=== PATIENT | female | born 1930 | race Caucasian/White ===

== ENCOUNTER 2019-05-19 10:31 | Emergency (ER) | payer MEDICARE, BC ==
[2019-05-19] MEDS ORDERED: Alteplase PER PHARMACY Stroke 1 EACH MISC MISCELLANE PRN ×2 (11:11→11:33)
[2019-05-19 11:12] LABS: Glucose,Whole Blood 97 mg/dL (75-99)
[2019-05-19 11:13] LABS: Basophils # (A) 0.1 k/uL (0-0.2); Basophils % (A) 1 %; Eosinophils # (A) 0.8 k/uL (0-0.7); Eosinophils % (A) 7 %; HCT 35.9 % (34.0-46.0); HGB 11.7 gm/dL (11.4-16.0); Lymphocytes # (A) 0.9 k/uL (1.0-4.8); Lymphocytes % (A) 8 %; MCH 30.6 pg (25.0-35.0); MCHC 32.7 g/dL (31.0-37.0); MCV 93.4 fL (80.0-100.0); Mean Platelet Volume 6.4; Monocytes # (A) 0.7 k/uL (0-1.0); Monocytes % (A) 6 %; Neutrophils # (A) 9.3 k/uL (1.3-7.7); Neutrophils % (A) 78 %; Platelet Count 331 k/uL (150-450); RBC 3.84 m/uL (3.80-5.40); RDW 13.5 % (11.5-15.5); WBC 11.9 k/uL (3.8-10.6)
[2019-05-19] MEDS ORDERED: ALTEPLASE 51 MG in EMPTY BAG 1 BAG IV STA (11:14)
[2019-05-19] MEDS ORDERED: ALTEPLASE BOLUS 6 MG in EMPTY SYRINGE 1 SYR IV STA (11:14)
[2019-05-19 11:18] LABS: Albumin 4.1 g/dL (3.5-5.0); Calcium 9.8 mg/dL (8.4-10.2); Total Bilirubin 0.9 mg/dL (0.2-1.3); Total Protein 7.5 g/dL (6.3-8.2)
--- NOTE | 2019-05-19 11:18 | CT ---
EXAMINATION TYPE: CT brain wo con for TPA DATE OF EXAM: 05/19/2019 HISTORY: Right sided weakness. Automated Exposure Control for Dose Reduction was Utilized. TECHNIQUE: CT scan of the head is performed without contrast. COMPARISON: None. FINDINGS: There is no acute intracranial hemorrhage or midline shift identified. There is diffuse v entricular and sulcal prominence consistent with diffuse age-related cerebral atrophy most prominent over the bilateral frontal lobes.. There is low-attenuation in the periventricular white matter cons istent with chronic small vessel ischemic change. The globes are intact and the visualized sinuses a re clear. IMPRESSION: No acute intracranial hemorrhage or midline shift. There is mild to moderate diffuse ce rebral atrophy most prominent over bilateral frontal lobes and chronic small vessel ischemic change n oted.
[2019-05-19 11:21] LABS: Partial Thromboplastin Time 23.9 sec (22.0-30.0); Prothrombin Time 10.5 sec (9.0-12.0)
[2019-05-19 11:22] LABS: Potassium 5.3 mmol/L (3.5-5.1)
[2019-05-19 11:28] LABS: Creatine Kinase <20 U/L (30-135)
[2019-05-19 11:41] LABS: Creatine Kinase MB 1.2 ng/mL (0.0-2.4); Troponin I <0.012 ng/mL (0.000-0.034)
--- NOTE | 2019-05-19 11:54 | CT ---
EXAMINATION TYPE: CT angio head neck DATE OF EXAM: 05/19/2019 COMPARISON: CT same day HISTORY: 88-year-old female neurologic deficits, acute Right sided weakness. TECHNIQUE: Contiguous axial scanning of the head and neck performed with IV Contrast, patient injecte d with 65 mL of Isovue 370. Coronal/sagittal MIP reconstructions performed. 3-D reconstructions gener ated on a dedicated independent workstation. CT DLP: 1489.1 mGycm Automated exposure control for dose reduction was used. FINDINGS: Neck: Incidental 5.2 x 4.8 cm superior segment right lower lobe mass. There may be minimal extension across the major fissure. Right hilar lymph node up to 2.3 cm, subcarinal lymph node at 1.5 cm, and right p aratracheal lymph nodes measuring up to 2.4 cm. Background of emphysema moderate to severe. Ascending aorta ectatic at 3.5 cm. Mild atherosclerotic arch calcifications with conventional arch ve ssel branching anatomy. Tortuous proximal right common carotid artery. Both right common and internal carotid arteries are pa tent. Mild atherosclerotic narrowing at the origin of the left common carotid artery. Severe atheroscleroti c calcification at the left carotid bulb with left ICA occlusion. The left bifurcation is located 1.5 cm below the angle of the mandible. The vertebral arteries are codominant and patent throughout their course. Head: Mild atherosclerotic calcifications proximal V4 segment bilateral vertebral arteries. No significant stenosis of the vertebral basilar arteries. Nonopacification of the left internal carotid artery. Moderate atherosclerotic narrowing within the r ight carotid siphon. There is reconstitution of the left-sided MCA and BUNNY branches probably from retrograde flow from a p atent anterior communicating artery. No aneurysmal changes seen. IMPRESSION: NECK: 1. INCIDENTAL 5.2 CM SUPERIOR SEGMENT RIGHT LOWER LOBE MASS WITH METASTATIC RIGHT HILAR AND MEDIASTIN AL LYMPHADENOPATHY MEASURING UP TO 2.4 CM. APPROPRIATE WORKUP AND MANAGEMENT RECOMMENDED. 2. SEVERE ATHEROSCLEROTIC CALCIFICATION LEFT CAROTID BULB WITH PROXIMAL LEFT ICA OCCLUSION. HEAD: 1. NO FLOW IN THE INTRACRANIAL LEFT ICA. RECONSTITUTION OF FLOW OF THE LEFT-SIDED BUNNY AND MCA BRANCHE S PROBABLY FROM RETROGRADE FLOW THROUGH A PATENT ANTERIOR COMMUNICATING ARTERY. 2. MODERATE ATHEROSCLEROTIC NARROWING WITHIN THE RIGHT CAROTID SIPHON.
[2019-05-19 12:37] VITALS: RESP 18
--- NOTE | 2019-05-19 13:21 | XR ---
EXAMINATION TYPE: XR chest 1V portable DATE OF EXAM: 05/19/2019 COMPARISON: NONE HISTORY: Right arm weakness TECHNIQUE: Single frontal view of the chest is obtained. FINDINGS: There is a large right hilar soft tissue prominence could represent mass or adenopathy. La rge hiatal hernia seen. Heart is enlarged and there is diffuse osteopenia and atherosclerotic change aorta. No pneumothorax or overt failure. No focal pneumonia. IMPRESSION: 1. Right hilar soft tissue prominence may represent a mass or adenopathy. Consider CT of the chest. 2. Large hiatal hernia. 3. Cardiomegaly
--- NOTE | 2019-05-19 13:56 | ED ---
Neuro HPI - General Chief Complaint: Neuro Symptoms/Deficit Stated Complaint: rt arm weakness Time Seen by Provider: 05/19/19 10:46 Source: patient, RN notes reviewed Mode of arrival: wheelchair Limitations: no limitations - History of Present Illness Is the patient presenting with stroke symptoms?: Yes Initial Comments: This is a 88-year-old female presents to the onset around 9:00 this morning of right-sided facial droop as well as right upper lower extremity weakness. She has had history of TIAs in past. She denies any pain no fall no trauma fevers chills nausea vomiting sweats he had apparently related data yesterday. - Related Data Home Medications: Home Medications Medication Instructions Recorded Confirmed Aspirin [Children's Aspirin] 81 mg PO DAILY 05/19/19 05/19/19 Atenolol [Tenormin] 50 mg PO DAILY 05/19/19 05/19/19 Benazepril/Hydrochlorothiazide 1 tab PO DAILY 05/19/19 05/19/19 [Benazepril-Hctz 10-12.5 mg Tab] Calcium Citrate/Vitamin D3 1 tab PO DAILY 05/19/19 05/19/19 [Calcium Cit 315-Vit D3 250mg Tab] Clopidogrel [Plavix] 75 mg PO DAILY 05/19/19 05/19/19 Diazepam [Valium] 5 mg PO DAILY PRN 05/19/19 05/19/19 Ferrous Sulfate 220 mg PO DAILY 05/19/19 05/19/19 [place]-3 Acid Ethyl Esters [Lovaza] 1 gm PO DAILY 05/19/19 05/19/19 Pravastatin Sodium [Pravachol] 40 mg PO DAILY 05/19/19 05/19/19 Allergies/Adverse Reactions: Allergies Allergy/AdvReac Type Severity Reaction Status Date / Time Iodinated Contrast Media Allergy Unknown Verified 05/19/19 11:01 Tetanus Vaccines and Toxoid Allergy Unknown Verified 05/19/19 10:53 Review of Systems ROS Statement: Those systems with pertinent positive or pertinent negative responses have been documented in the HPI. ROS Other: All systems not noted in ROS Statement are negative. General Exam - General Exam Comments Initial Comments: Is a well-developed asthenic appearing female who is awake alert oriented 3 he does demonstrate facial asymmetry in the right Limitations: no limitations General appearance: alert, anxious Head exam: Present: atraumatic, normocephalic, normal inspection Eye exam: Present: normal appearance, PERRL, EOMI. Absent: scleral icterus, conjunctival injection, periorbital swelling ENT exam: Present: mucous membranes moist, other (Flattening other right nasolabial fold with some facial asymmetry compared to the left) Neck exam: Present: normal inspection, full ROM, other (No stridor JVD or bruits). Absent: tenderness, meningismus, lymphadenopathy Respiratory exam: Present: normal lung sounds bilaterally. Absent: respiratory distress, wheezes, rales, rhonchi, stridor Cardiovascular Exam: Present: tachycardia, irregular rhythm, normal heart sounds. Absent: systolic murmur, diastolic murmur, rubs, gallop, clicks GI/Abdominal exam: Present: soft, normal bowel sounds. Absent: distended, tenderness, guarding, rebound, rigid Extremities exam: Present: normal inspection, normal capillary refill. Absent: full ROM, tenderness, pedal edema, joint swelling, calf tenderness Back exam: Present: normal inspection Neurological exam: Present: alert, oriented X3, motor sensory deficit. Absent: CN II-XII intact Psychiatric exam: Present: normal affect, normal mood Skin exam: Present: warm, dry, intact, normal color. Absent: rash Stroke MDM - Lab Data Result diagrams: 05/19/19 10:54 05/19/19 10:54 Lab Results 05/19/19 05/19/19 05/19/19 Range/Units 10:52 10:54 10:54 WBC 11.9 H (3.8-10.6) k/uL RBC 3.84 (3.80-5.40) m/uL Hgb 11.7 (11.4-16.0) gm/dL Hct 35.9 (34.0-46.0) % MCV 93.4 (80.0-100.0) fL MCH 30.6 (25.0-35.0) pg MCHC 32.7 (31.0-37.0) g/dL RDW 13.5 (11.5-15.5) % Plt Count 331 (150-450) k/uL Neutrophils % 78 % Lymphocytes % 8 % Monocytes % 6 % Eosinophils % 7 % Basophils % 1 % Neutrophils # 9.3 H (1.3-7.7) k/uL Lymphocytes # 0.9 L (1.0-4.8) k/uL Monocytes # 0.7 (0-1.0) k/uL Eosinophils # 0.8 H (0-0.7) k/uL Basophils # 0.1 (0-0.2) k/uL PT (9.0-12.0) sec INR (<1.2) APTT (22.0-30.0) sec Sodium 142 (137-145) mmol/L Potassium 5.3 H (3.5-5.1) mmol/L Chloride 111 H (98-107) mmol/L Carbon Dioxide 20 L (22-30) mmol/L Anion Gap 11 mmol/L BUN 51 H (7-17) mg/dL Creatinine 2.27 H (0.52-1.04) mg/dL Est GFR (CKD-EPI)AfAm 22 (>60 ml/min/1.73 sqM) Est GFR (CKD-EPI)NonAf 19 (>60 ml/min/1.73 sqM) Glucose 95 (74-99) mg/dL POC Glucose (mg/dL) 97 (75-99) mg/dL POC Glu Broom Handle Dipper ID Enrique Mathur Calcium 9.8 (8.4-10.2) mg/dL Total Bilirubin 0.9 (0.2-1.3) mg/dL AST 21 (14-36) U/L ALT 10 (9-52) U/L Alkaline Phosphatase 64 (38-126) U/L Total Creatine Kinase (30-135) U/L CK-MB (CK-2) (0.0-2.4) ng/mL CK-MB (CK-2) Rel Index Troponin I (0.000-0.034) ng/mL Total Protein 7.5 (6.3-8.2) g/dL Albumin 4.1 (3.5-5.0) g/dL 05/19/19 05/19/19 Range/Units 10:54 10:54 WBC (3.8-10.6) k/uL RBC (3.80-5.40) m/uL Hgb (11.4-16.0) gm/dL Hct (34.0-46.0) % MCV (80.0-100.0) fL MCH (25.0-35.0) pg MCHC (31.0-37.0) g/dL RDW (11.5-15.5) % Plt Count (150-450) k/uL Neutrophils % % Lymphocytes % % Monocytes % % Eosinophils % % Basophils % % Neutrophils # (1.3-7.7) k/uL Lymphocytes # (1.0-4.8) k/uL Monocytes # (0-1.0) k/uL Eosinophils # (0-0.7) k/uL Basophils # (0-0.2) k/uL PT 10.5 (9.0-12.0) sec INR 1.0 (<1.2) APTT 23.9 (22.0-30.0) sec Sodium (137-145) mmol/L Potassium (3.5-5.1) mmol/L Chloride (98-107) mmol/L Carbon Dioxide (22-30) mmol/L Anion Gap mmol/L BUN (7-17) mg/dL Creatinine (0.52-1.04) mg/dL Est GFR (CKD-EPI)AfAm (>60 ml/min/1.73 sqM) Est GFR (CKD-EPI)NonAf (>60 ml/min/1.73 sqM) Glucose (74-99) mg/dL POC Glucose (mg/dL) (75-99) mg/dL POC Glu Broom Handle Dipper ID Calcium (8.4-10.2) mg/dL Total Bilirubin (0.2-1.3) mg/dL AST (14-36) U/L ALT (9-52) U/L Alkaline Phosphatase (38-126) U/L Total Creatine Kinase <20 L (30-135) U/L CK-MB (CK-2) 1.2 (0.0-2.4) ng/mL CK-MB (CK-2) Rel Index Troponin I <0.012 (0.000-0.034) ng/mL Total Protein (6.3-8.2) g/dL Albumin (3.5-5.0) g/dL - NIH Stroke Scale 1a. Level of Consciousness: (0) alert 1b. LOC Questions: (0) answers correctly 1c. LOC Commands: (0) performs tasks correctly 2. Best Gaze: (1) partial gaze palsy 3. Visual: (0) no visual loss 4. Facial Palsy: (1) minor paralysis 5a. Motor Arm Left: (0) no drift 5b. Motor Arm Right: (4) no movement 6a. Motor Leg Left: (0) no drift 6b. Motor Leg Right: (2) some gravity effort 7. Limb Ataxia: (1) present 1 limb 8. Sensory: (0) normal 9. Best Language: (0) no aphasia 10. Dysarthria: (0) normal 11. Extinction/Inattention: (0) no abnormality - Thrombolytic Inclusion/Exclusion Thrombolytic Inclusion Criteria: Symptom Onset < 4.5 h - Medical Decision Making Reevaluation patient reveals improvement in her symptoms. They're almost totally resolved. The copy coordinator did contact the neurology patient will be admitted with evaluation here. Past Medical History Past Medical History: CVA/TIA History of Any Multi-Drug Resistant Organisms: None Reported Past Surgical History: No Surgical Hx Reported Past Psychological History: No Psychological Hx Reported Smoking Status: Never smoker Past Alcohol Use History: None Reported Past Drug Use History: None Reported Course Vital Signs 05/19/19 05/19/19 05/19/19 10:32 11:35 11:50 Temperature 98.1 F 97.4 F L 97.6 F Pulse Rate 99 103 H 112 H Respiratory 18 18 18 Rate Blood Pressure 109/73 120/76 107/76 O2 Sat by Pulse 98 100 100 Oximetry 05/19/19 05/19/19 05/19/19 12:05 12:20 12:35 Temperature 97.0 F L 97.6 F 97.4 F L Pulse Rate 97 102 H 112 H Respiratory 20 20 18 Rate Blood Pressure 117/72 115/70 118/84 O2 Sat by Pulse 100 100 100 Oximetry 05/19/19 05/19/19 05/19/19 12:50 13:05 13:20 Temperature 98.0 F Pulse Rate 105 H 109 H 98 Respiratory 18 18 18 Rate Blood Pressure 121/78 110/72 118/69 O2 Sat by Pulse 100 100 95 Oximetry - Reevaluation(s) Reevaluation #1: 05/19/19 13:49 The code stroke was called. Dr. Valenzuela did respond did evaluate the CAT scans as well as the patient. Plain brain CT was negative for acute findings the CT angios did show evidence of some some nonacute occlusion. Patient was not a candidate for intervention with TPA candidate. Reevaluation #2: 05/19/19 13:50 Reevaluation for TPA revealed almost total resolution of the symptoms. Critical Care Time Critical Care Time: Yes Critical Care Time: 40 minutes of critical care time which includes initial presentation with history physical labs x-rays multiple reevaluation the patient responsive therapy discuss with the patient family and multiple occasions discuss with the interventional neurologist discussed with the admitting physician on Dr. Arteaga's service admission orders neck mentation the above Disposition Clinical Impression: Cerebrovascular accident (CVA) Disposition: ADMITTED IP TO THIS HOSP Condition: Fair Referrals: Gelacio Deluca MD [Primary Care Provider] - 1-2 days
[2019-05-19] MEDS ORDERED: NALOXONE 0.4 MG/ML 1 ML VIAL IV PRN (13:58)
[2019-05-19] MEDS ORDERED: ACETAMINOPHEN TAB 325 MG TAB PO PRN (13:58)
[2019-05-19] MEDS ORDERED: DIAZEPAM 5 MG TAB PO PRN (14:00)
[2019-05-19] MEDS ORDERED: SODIUM CHLORIDE 0.9% 1,000 ML IV SCH (14:00)
--- NOTE | 2019-05-19 14:02 | ED ---
Medical Decision Making - Lab Data Result diagrams: 05/19/19 10:54 05/19/19 10:54 Lab Results 05/19/19 05/19/19 05/19/19 Range/Units 10:52 10:54 10:54 WBC 11.9 H (3.8-10.6) k/uL RBC 3.84 (3.80-5.40) m/uL Hgb 11.7 (11.4-16.0) gm/dL Hct 35.9 (34.0-46.0) % MCV 93.4 (80.0-100.0) fL MCH 30.6 (25.0-35.0) pg MCHC 32.7 (31.0-37.0) g/dL RDW 13.5 (11.5-15.5) % Plt Count 331 (150-450) k/uL Neutrophils % 78 % Lymphocytes % 8 % Monocytes % 6 % Eosinophils % 7 % Basophils % 1 % Neutrophils # 9.3 H (1.3-7.7) k/uL Lymphocytes # 0.9 L (1.0-4.8) k/uL Monocytes # 0.7 (0-1.0) k/uL Eosinophils # 0.8 H (0-0.7) k/uL Basophils # 0.1 (0-0.2) k/uL PT (9.0-12.0) sec INR (<1.2) APTT (22.0-30.0) sec Sodium 142 (137-145) mmol/L Potassium 5.3 H (3.5-5.1) mmol/L Chloride 111 H (98-107) mmol/L Carbon Dioxide 20 L (22-30) mmol/L Anion Gap 11 mmol/L BUN 51 H (7-17) mg/dL Creatinine 2.27 H (0.52-1.04) mg/dL Est GFR (CKD-EPI)AfAm 22 (>60 ml/min/1.73 sqM) Est GFR (CKD-EPI)NonAf 19 (>60 ml/min/1.73 sqM) Glucose 95 (74-99) mg/dL POC Glucose (mg/dL) 97 (75-99) mg/dL POC Glu Economic Developer ID Enrique Mathur Calcium 9.8 (8.4-10.2) mg/dL Total Bilirubin 0.9 (0.2-1.3) mg/dL AST 21 (14-36) U/L ALT 10 (9-52) U/L Alkaline Phosphatase 64 (38-126) U/L Total Creatine Kinase (30-135) U/L CK-MB (CK-2) (0.0-2.4) ng/mL CK-MB (CK-2) Rel Index Troponin I (0.000-0.034) ng/mL Total Protein 7.5 (6.3-8.2) g/dL Albumin 4.1 (3.5-5.0) g/dL 05/19/19 05/19/19 Range/Units 10:54 10:54 WBC (3.8-10.6) k/uL RBC (3.80-5.40) m/uL Hgb (11.4-16.0) gm/dL Hct (34.0-46.0) % MCV (80.0-100.0) fL MCH (25.0-35.0) pg MCHC (31.0-37.0) g/dL RDW (11.5-15.5) % Plt Count (150-450) k/uL Neutrophils % % Lymphocytes % % Monocytes % % Eosinophils % % Basophils % % Neutrophils # (1.3-7.7) k/uL Lymphocytes # (1.0-4.8) k/uL Monocytes # (0-1.0) k/uL Eosinophils # (0-0.7) k/uL Basophils # (0-0.2) k/uL PT 10.5 (9.0-12.0) sec INR 1.0 (<1.2) APTT 23.9 (22.0-30.0) sec Sodium (137-145) mmol/L Potassium (3.5-5.1) mmol/L Chloride (98-107) mmol/L Carbon Dioxide (22-30) mmol/L Anion Gap mmol/L BUN (7-17) mg/dL Creatinine (0.52-1.04) mg/dL Est GFR (CKD-EPI)AfAm (>60 ml/min/1.73 sqM) Est GFR (CKD-EPI)NonAf (>60 ml/min/1.73 sqM) Glucose (74-99) mg/dL POC Glucose (mg/dL) (75-99) mg/dL POC Glu Economic Developer ID Calcium (8.4-10.2) mg/dL Total Bilirubin (0.2-1.3) mg/dL AST (14-36) U/L ALT (9-52) U/L Alkaline Phosphatase (38-126) U/L Total Creatine Kinase <20 L (30-135) U/L CK-MB (CK-2) 1.2 (0.0-2.4) ng/mL CK-MB (CK-2) Rel Index Troponin I <0.012 (0.000-0.034) ng/mL Total Protein (6.3-8.2) g/dL Albumin (3.5-5.0) g/dL - EKG Data -: EKG Interpreted by Me (Atrial flutter rate was 111 QRS 70 QT since QTC 288/391 abnormal QRS-T angl) Disposition Clinical Impression: Cerebrovascular accident (CVA), Atrial flutter Disposition: ADMITTED IP TO THIS HOSP Condition: Fair Referrals: Gelacio Deluca MD [Primary Care Provider] - 1-2 days
--- NOTE | 2019-05-19 15:32 | ED ---
Medical Decision Making - Medical Decision Making The case was discussed with Dr. Salguero as well as with Dr. Infante. No neurological covering after today. Due to the TPA being given and the lung mass and other potential problems a higher level of care was deemed to be necessary. Patient will be transferred to [facility] in [place] Dr. Agosto. Patient will be transferred by EMS. I did discuss this with patient and with family members. - Lab Data Result diagrams: 05/19/19 10:54 05/19/19 10:54 Lab Results 05/19/19 05/19/19 05/19/19 Range/Units 10:52 10:54 10:54 WBC 11.9 H (3.8-10.6) k/uL RBC 3.84 (3.80-5.40) m/uL Hgb 11.7 (11.4-16.0) gm/dL Hct 35.9 (34.0-46.0) % MCV 93.4 (80.0-100.0) fL MCH 30.6 (25.0-35.0) pg MCHC 32.7 (31.0-37.0) g/dL RDW 13.5 (11.5-15.5) % Plt Count 331 (150-450) k/uL Neutrophils % 78 % Lymphocytes % 8 % Monocytes % 6 % Eosinophils % 7 % Basophils % 1 % Neutrophils # 9.3 H (1.3-7.7) k/uL Lymphocytes # 0.9 L (1.0-4.8) k/uL Monocytes # 0.7 (0-1.0) k/uL Eosinophils # 0.8 H (0-0.7) k/uL Basophils # 0.1 (0-0.2) k/uL PT (9.0-12.0) sec INR (<1.2) APTT (22.0-30.0) sec Sodium 142 (137-145) mmol/L Potassium 5.3 H (3.5-5.1) mmol/L Chloride 111 H (98-107) mmol/L Carbon Dioxide 20 L (22-30) mmol/L Anion Gap 11 mmol/L BUN 51 H (7-17) mg/dL Creatinine 2.27 H (0.52-1.04) mg/dL Est GFR (CKD-EPI)AfAm 22 (>60 ml/min/1.73 sqM) Est GFR (CKD-EPI)NonAf 19 (>60 ml/min/1.73 sqM) Glucose 95 (74-99) mg/dL POC Glucose (mg/dL) 97 (75-99) mg/dL POC Glu Fashion Photographer ID Enrique Mathur Calcium 9.8 (8.4-10.2) mg/dL Total Bilirubin 0.9 (0.2-1.3) mg/dL AST 21 (14-36) U/L ALT 10 (9-52) U/L Alkaline Phosphatase 64 (38-126) U/L Total Creatine Kinase (30-135) U/L CK-MB (CK-2) (0.0-2.4) ng/mL CK-MB (CK-2) Rel Index Troponin I (0.000-0.034) ng/mL Total Protein 7.5 (6.3-8.2) g/dL Albumin 4.1 (3.5-5.0) g/dL 05/19/19 05/19/19 Range/Units 10:54 10:54 WBC (3.8-10.6) k/uL RBC (3.80-5.40) m/uL Hgb (11.4-16.0) gm/dL Hct (34.0-46.0) % MCV (80.0-100.0) fL MCH (25.0-35.0) pg MCHC (31.0-37.0) g/dL RDW (11.5-15.5) % Plt Count (150-450) k/uL Neutrophils % % Lymphocytes % % Monocytes % % Eosinophils % % Basophils % % Neutrophils # (1.3-7.7) k/uL Lymphocytes # (1.0-4.8) k/uL Monocytes # (0-1.0) k/uL Eosinophils # (0-0.7) k/uL Basophils # (0-0.2) k/uL PT 10.5 (9.0-12.0) sec INR 1.0 (<1.2) APTT 23.9 (22.0-30.0) sec Sodium (137-145) mmol/L Potassium (3.5-5.1) mmol/L Chloride (98-107) mmol/L Carbon Dioxide (22-30) mmol/L Anion Gap mmol/L BUN (7-17) mg/dL Creatinine (0.52-1.04) mg/dL Est GFR (CKD-EPI)AfAm (>60 ml/min/1.73 sqM) Est GFR (CKD-EPI)NonAf (>60 ml/min/1.73 sqM) Glucose (74-99) mg/dL POC Glucose (mg/dL) (75-99) mg/dL POC Glu Fashion Photographer ID Calcium (8.4-10.2) mg/dL Total Bilirubin (0.2-1.3) mg/dL AST (14-36) U/L ALT (9-52) U/L Alkaline Phosphatase (38-126) U/L Total Creatine Kinase <20 L (30-135) U/L CK-MB (CK-2) 1.2 (0.0-2.4) ng/mL CK-MB (CK-2) Rel Index Troponin I <0.012 (0.000-0.034) ng/mL Total Protein (6.3-8.2) g/dL Albumin (3.5-5.0) g/dL Disposition Clinical Impression: Cerebrovascular accident (CVA), Atrial flutter Disposition: OTHER INSTITUTION NOT DEFINED Condition: Fair Referrals: Gelacio Deluca MD [Primary Care Provider] - 1-2 days - Out of Hospital Transfer - Req. Specs Out of Hospital Transfer - Requested Specifics: Other Emergency Center
[2019-05-19 16:27] VITALS: BP 121/71; PULSE 98; TEMP 98.3
--- NOTE | 2019-05-19 18:14 | P.CNNES ---
History of Present Illness Consult date: 05/19/19 Reason for Consult: Concern for stroke Chief complaint: Right-sided facial droop and right upper extremity weakness History of Present Illness: HISTORY OF PRESENT ILLNESS: Thank you for allowing me to evaluate Mss. Clarita Thomas. Ms. Thomas is an 88-year-old woman with past medical history of TIA (slurred speech), right ICA occlusion, hypertension, arthritis, presented with acute onset right upper extremity weakness along with some speech difficulty since this morning. Patient was brought in by her daughter who she lives with. Patient was noted to have some right facial droop as well by her daughter, and it isn't possible. Patient's initial NIH stroke scale score was 7. Patient was deemed a candidate for TPA but not for a thrombectomy. Patient received TPA, after which patient's NIH stroke scale score came down to a 1. Initially, patient was not able to move her right upper extremity at all or answer some questions, but patient is now able to move her right upper extremity against gravity although still weak, and she no longer has any speech difficulty. Patient denies any headache, nausea, vomiting, dizziness, vertigo, numbness or tingling. Denies any double or blurry vision. Denies any recent sickness, coughing, sneezing, abdominal pain, diarrhea, constipation, pain with urination, increased frequency. Daughter states that about a week ago, patient was told that she had atrial fibrillation. Patient had been on aspirin and Plavix due to her right ICA occlusion and some stenosis in her left ICA. However, patient was recently told that any both was too much, so she's been taking Plavix every day and aspirin once a week. PAST MEDICAL HISTORY: TIA (slurred speech), right ICA occlusion, hypertension, arthritis PAST SURGICAL HISTORY: none reported HOME MEDICATIONS: Pravastatin, omega-3, ferrous sulfate, Plavix, calcium, benazepril-HCTZ, atenolol, aspirin ALLERGIES: Contrast, tetanus vaccines SOCIAL HISTORY: Patient smoked from age 19 until 48. Smoked about 1 pack per day. denies any alcohol abuse or drug abuse history. REVIEW OF SYSTEMS: The 14 systems are reviewed and no additional points are identified compared to the review of systems documented history and physical PHYSICAL EXAMINATION: VITAL SIGNS: T 98.0 HR 103 RR 18 BP 123/81 O2 sat 100% on RA GEN.: NAD, pleasant and cooperative HEENT: NCAT, sclera without icterus NECK: Supple SKIN AND EXTREMITIES: Warm to touch, no edema NEURO: MENTAL STATUS: Patient alert and oriented to self, place, time. Able to name the current president. Speech fluent, able to name and repeat, following all commands readily. No right and left disorientation, extinction to double simultaneous stimulation, finger agnosia, neglect. CRANIAL NERVES II THROUGH XII: II: Pupils are equal and reactive to light symmetrically. No afferent pupillary defect. Visual dunn are intact. III, IV, : No ptosis. Extraocular movements full. No nystagmus. V: Facial sensation intact from V1-3. VII. No clear facial asymmetry. VIII: Hearing intact to finger rub bilaterally. IX, X: Symmetric palate elevation. XI: Shoulder shrug intact. XII: Tongue midline without fasciculation or atrophy. MOTOR: Normal bulk/tone. Right upper extremity pronator drift. No tremor. Strength is 5/5 in left upper extremity and bilateral nausea and malaise. Patient is able to move her right upper extremity against gravity. Her proximal right upper extremity weakness is greater than distal right upper extremity weakness. 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 REFLEXES: 2+ throughout. Toes are downgoing. COORDINATION: Finger to nose intact. No dysmetria. GAIT: Deferred DIAGNOSTIC TESTING: LABORATORY: WBC 11.9 hemoglobin 11.7 platelet 331 PT 10.5 INR 1.0 sodium 142 potassium 5.3 chloride 111 bicarb 20 BUN 51 creatinine 2.27 glucose 95 AST 21 ALT 10 alk phos 64 troponin <0.012 IMAGING: CT head without contrast 05/19/2019: No acute intracranial hemorrhage or midline shift. There is mild to moderate diffuse cerebral atrophy most prominent over bilateral frontal lobes and chronic small vessel ischemic changes noted. CT head and neck with and without contrast 05/19/2019: Severe atherosclerotic calcification left carotid bulb with proximal left ICA occlusion. 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 No flow in the intracranial left ICA. Reconstitution of flow of the left-sided BUNNY and MCA branches probably from a separate flow through a patent anterior c ommunicating artery. Moderate atherosclerotic narrowing within the right carotid siphon. ASSESSMENT: Ms. Frabotta is an 88-year-old woman with past medical history of TIA (slurred speech), right ICA occlusion, hypertension, arthritis, presented with acute onset right upper extremity weakness along with some speech difficulty since this morning. Patient was recently diagnosed with atrial fibrillation. Patient emergency room also showing atrial fibrillation. CT date of the head and neck also showed some parts of the lungs, which showed possible malignancy. Patient with multiple risk factors for stroke, such as hypertension, atherosclerosis, atrial fibrillation, and possible cancer at this time. Patient is post-TPA, and she will need TPA care in the ICU for the next 24 hours. RECOMMENDATIONS: 1. MRI brain without contrast at 24 hour sandeep after TPA administration 2. Transthoracic echocardiogram 3. Maintain SBP <185 DBP <120; labetalol 10mg IV PRN for SBP >185 DBP >120 4. Atorvastatin 80mg qhs; no antiplatelet or anticoagulation at this time 5. Labs: A1C, TSH, FLP 6. PT/OT/ST per protocol 7. Discussed with patient about stroke prevention guidelines. Medication compliance, hypertension/diabetes control, lifestyle changes including no smoking, drinking in moderation, losing weight, exercising, eating healthier and medication compliance 8. Neurology will continue to follow 9. Patient needs to follow up with neurologist as outpatient with her 1-2 weeks of discharge Past Medical History Past Medical History: CVA/TIA History of Any Multi-Drug Resistant Organisms: None Reported Past Surgical History: No Surgical Hx Reported Past Psychological History: No Psychological Hx Reported Smoking Status: Never smoker Past Alcohol Use History: None Reported Past Drug Use History: None Reported Medications and Allergies Home Medications Medication Instructions Recorded Confirmed Type Aspirin [Children's Aspirin] 81 mg PO DAILY 05/19/19 05/19/19 History Atenolol [Tenormin] 50 mg PO DAILY 05/19/19 05/19/19 History Benazepril/Hydrochlorothiazide 1 tab PO DAILY 05/19/19 05/19/19 History [Benazepril-Hctz 10-12.5 mg Tab] Calcium Citrate/Vitamin D3 1 tab PO DAILY 05/19/19 05/19/19 History [Calcium Cit 315-Vit D3 250mg Tab] Clopidogrel [Plavix] 75 mg PO DAILY 05/19/19 05/19/19 History Diazepam [Valium] 5 mg PO DAILY PRN 05/19/19 05/19/19 History Ferrous Sulfate 220 mg PO DAILY 05/19/19 05/19/19 History Bertrand-3 Acid Ethyl Esters [Lovaza] 1 gm PO DAILY 05/19/19 05/19/19 History Pravastatin Sodium [Pravachol] 40 mg PO DAILY 05/19/19 05/19/19 History Allergies Allergy/AdvReac Type Severity Reaction Status Date / Time Iodinated Contrast Media Allergy Unknown Verified 05/19/19 11:01 Tetanus Vaccines and Toxoid Allergy Unknown Verified 05/19/19 10:53 Physical Examination - Vital Signs Vital Signs: Vital Signs Temp Pulse Resp BP Pulse Ox 05/19/19 13:50 103 H 18 123/81 100 05/19/19 13:20 98 18 118/69 95 05/19/19 13:05 98.0 F 109 H 18 110/72 100 05/19/19 12:50 105 H 18 121/78 100 05/19/19 12:35 97.4 F L 112 H 18 118/84 100 05/19/19 12:20 97.6 F 102 H 20 115/70 100 05/19/19 12:05 97.0 F L 97 20 117/72 100 05/19/19 11:50 97.6 F 112 H 18 107/76 100 05/19/19 11:35 97.4 F L 103 H 18 120/76 100 05/19/19 10:32 98.1 F 99 18 109/73 98 Intake and Output 05/18/19 05/19/19 05/19/19 22:59 06:59 14:59 Other: Weight 63.503 kg Results - Laboratory Findings CBC and BMP: 05/19/19 10:54 05/19/19 10:54 Abnormal Lab Findings: Abnormal Labs 05/19/19 05/19/19 05/19/19 10:54 10:54 10:54 WBC 11.9 H Neutrophils # 9.3 H Lymphocytes # 0.9 L Eosinophils # 0.8 H Potassium 5.3 H Chloride 111 H Carbon Dioxide 20 L BUN 51 H Creatinine 2.27 H Total Creatine Kinase <20 L
[2019-05-20] MEDS ORDERED: ATENOLOL 50 MG TAB PO SCH (09:00)
[2019-05-20] MEDS ORDERED: HYDROCHLOROTHIAZIDE 12.5 MG CAP PO SCH (09:00)
[2019-05-20] MEDS ORDERED: PRAVASTATIN SODIUM 40 MG TAB PO SCH (09:00)
[2019-05-20] MEDS ORDERED: CALCIUM CARB-VIT D 500MG-200UN 1 EACH TAB PO SCH (09:00)
[2019-05-20] MEDS ORDERED: FERROUS SULFATE 325 MG TAB PO SCH (09:00)
[2019-05-20] MEDS ORDERED: LISINOPRIL 10 MG TAB PO SCH (09:00)
[2019-05-20] MEDS ORDERED: NON FORMULARY DRUG (Omega-3 Acid Ethyl Esters [Lovaza] 1 GM) PO SCH (09:00)
--- NOTE | 2019-05-20 11:00 | ECHOF ---
Referral Reason:Flutter, CVA MEASUREMENTS -------- HEIGHT: 160.0 cm WEIGHT: 63.5 kg BP: 117/67 RVIDd: 3.0 cm (< 3.3) IVSd: 1.1 cm (0.6 - 1.1) LVIDd: 3.7 cm (3.9 - 5.3) LVPWd: 1.1 cm (0.6 - 1.1) IVSs: 1.4 cm LVIDs: 2.2 cm LVPWs: 1.3 cm LA Diam: 3.3 cm (2.7 - 3.8) LAESV Index (A-L): 33.40 ml/m Ao Diam: 2.8 cm (2.0 - 3.7) AV Cusp: 1.3 cm (1.5 - 2.6) MV EXCURSION: 21.866 mm (> 18.000) MV EF SLOPE: 230 mm/s (70 - 150) EPSS: 0.3 cm RAP: 5.00 mmHg RVSP: 39.18 mmHg TAPSE: 14.64 mm FINDINGS -------- The rhythm appears to be atrial flutter. This was a technically adequate study. The left ventricular size is normal. There is borderline concentric left ventricular hypertrophy. Overall left ventricular systolic function is mildly impaired with, an EF between 45 - 50 %. The right ventricle is normal in size. LA is midly dilated 29-33ml/m2. The right atrium is normal in size. Aneurysmal Interatrial septum. There is mild aortic valve sclerosis. The mitral valve leaflets are mildly thickened. [id number] mitral regurgitation is present. Moderate tricuspid regurgitation present. There is mild pulmonary hypertension. The right ventric ular systolic pressure, as measured by Doppler, is 39.18mmHg. The pulmonic valve was not well visualized. The aortic root size is normal. Normal inferior vena cava with normal inspiratory collapse consistent with estimated right atrial pre ssure of 5 mmHg. There is no pericardial effusion. CONCLUSIONS -------- 1. The rhythm appears to be atrial flutter. 2. This was a technically adequate study. 3. The left ventricular size is normal. 4. There is borderline concentric left ventricular hypertrophy. 5. Overall left ventricular systolic function is mildly impaired with, an EF between 45 - 50 %. 6. The right ventricle is normal in size. 7. LA is midly dilated 29-33ml/m2. 8. The right atrium is normal in size. 9. Aneurysmal Interatrial septum. 10. There is mild aortic valve sclerosis. 11. The mitral valve leaflets are mildly thickened. 12. [id number] mitral regurgitation is present. 13. Moderate tricuspid regurgitation present. 14. There is mild pulmonary hypertension. 15. The right ventricular systolic pressure, as measured by Doppler, is 39.18mmHg. 16. The pulmonic valve was not well visualized. 17. The aortic root size is normal. 18. Normal inferior vena cava with normal inspiratory collapse consistent with estimated right atrial pressure of 5 mmHg. 19. There is no pericardial effusion. SHOP MANAGER: Brianna Pagan RDCS
[2019-05-21] MEDS ORDERED: CLOPIDOGREL 75 MG TAB PO SCH (09:00)
[2019-05-21] MEDS ORDERED: ASPIRIN 81 MG PO SCH (09:00)
== END 2019-05-19 16:49 | disposition other institution (70) ==
LOC: EC 10:31
DX: I63.9 Cerebral infarction, unspecified (principal); I65.21 Occlusion and stenosis of right carotid artery; R29.701 NIHSS score 1; Z88.7 Allergy status to serum and vaccine; Z79.82 Long term (current) use of aspirin; Z79.02 Long term (current) use of antithrombotics/antiplatelets; Z79.899 Other long term (current) drug therapy
CPT/HCPCS: 37195; 36415; 93005; 93306; 80053; 82550; 82553; 84484; 85025; 85610; 85730; 71045; 70496; 70450; 70498; 99291; J2997; Q9967